=== PATIENT | female | born 1965 | race Caucasian/White ===

== ENCOUNTER → 2024-03-22 | Outpatient (REF) ==
[~2024-03-22] MED LIST: /AUGM25TA; /LANS30GR; A/B OTIC DROPS; ATEN25TA; AVEL1TAB2; FLON0.05; LORATADINE; PRED20TA; PROZ40CA; TOPI100T; VICO5TAB; ofloxacin
== END ==
LOC: M PLAIMG 12:15
PROVIDERS: ATTEND Internal Medicine
DX: M51.36 Other intervertebral disc degeneration, lumbar region (principal); M25.572 Pain in left ankle and joints of left foot

== ENCOUNTER → 2024-09-28 | Outpatient (CLI) | payer OTHER ==
[~2024-09-28] MED LIST changes: +METHACHOLINE KIT (6 VIAL.NEB PREMIX) INH ONE
== END ==
LOC: M CARPUL 12:55
PROVIDERS: ATTEND Internal Medicine Pulmonary Disease
DX: R06.02 Shortness of breath (principal)
CPT/HCPCS: 88738; 94010; 94070; 94726; 94729; 95070; J7674